=== PATIENT | male | born 1930 | race Caucasian/White ===

== ENCOUNTER → 2016-12-02 | Day surgery (SDC) | payer MEDICARE, BC ==
[~2016-12-02] MED LIST: ALLEGRA PO; AUGMENTIN PO; CALCIUM500 M1; CARBIDOPA-LEVO1 EAC5 PO; DIOVAN320 MG PO; DULOXETINE HCL60 MG PO; JARDIANCE10 MG PO; LO-DOSE ASPIRIN81 M1 PO; MULTI VITAMIN1 EACH PO; NAMENDA XR28 MG PO; NIFEDIPINE ER60 M2 PO; PRILOSEC PO; RIVASTIGMINE4.5 MG PO; VITAMIN C500 M6 PO; ZANTAC150 MG PO
--- NOTE | ~2016-12-02 | OR ---
Unit #: [id number] #: [id number] Patient: JOS[place]E [place] DR [id number] [address] [address] [id number] O MR#: [id number] NAME: JOSIANE BUTTS. ROOM: Date of Procedure: 12/02/2016 Admission Date: 12/02/2016 Surgeon: Gold Joshi M.D. : 1930 Attending Physician: Gold Joshi M.D. Primary Care Physician: Dwayne Brown M.D. OPERATIVE REPORT PROCEDURE PERFORMED Flexible fiberoptic bronchoscopy. INDICATIONS FOR PROCEDURE Hemoptysis, abnormal CAT scan. FINDINGS No endobronchial lesions seen. He had some nodular mucosa that appeared benign, particularly right lower lobe. He did have some mucus emanating from posterior segment right upper lobe. SEDATION MAC. CONDITION AFTER PROCEDURE Stable to recovery room. COMPLICATION Zero. DESCRIPTION OF PROCEDURE The patient was brought to the endoscopy suite and monitored for heart rate, blood pressure, saturations, and end-tidal CO2. Sedated with MAC. Anesthetized with 2% lidocaine in both nares. Viscous lidocaine was applied to his right naris. Bronchoscope was introduced without difficulty. Vocal cords were visualized. There were normal configuration, mostly anesthetized x2. Main trachea was intubated. Airways were anesthetized. All subsegments were identified. He had some mild nodularity that appeared to be benign, particularly right lower lobe. He had some mucus emanating from the posterior segment right upper lobe. This was removed. BAL was performed in the posterior segment right upper lobe in standard fashion. A 60 mL aliquots were instilled x2 with small, but cellular return. Some of the BAL fluid was recovered with bronchial washings. The bronchoscope was removed without difficulty, and the patient was in stable condition en route to the recovery room. Dictated by... Gold Joshi M.D. WOL/modl Unit #: [id number] #: [id number] Patient: JOSIANE BUTTS DR TD: 12/02/2016 14:52 JOB #: [id number] OPERATIVE REPORT Page 1 of 1 X Gold Joshi MD PROCEDURE OPERATIVE NOTE
[2016-12-02 14:00] LABS: BODY FLUID APPEARANCE CLOUDY; BODY FLUID SOURCE BRONCHIAL LAVAGE
== END | disposition home or self-care (01) ==
LOC: COPS 07:49
PROVIDERS: Internal Medicine
DX: R91.8 Other nonspecific abnormal finding of lung field (principal); I10 Essential (primary) hypertension; I25.10 Atherosclerotic heart disease of native coronary artery without angina pectoris; I25.2 Old myocardial infarction; E11.40 Type 2 diabetes mellitus with diabetic neuropathy, unspecified; G20 Parkinson's disease; K21.9 Gastro-esophageal reflux disease without esophagitis; M41.9 Scoliosis, unspecified; M81.0 Age-related osteoporosis without current pathological fracture; Z80.9 Family history of malignant neoplasm, unspecified; Z95.1 Presence of aortocoronary bypass graft; Z79.84 Long term (current) use of oral hypoglycemic drugs; Z98.890 Other specified postprocedural states; Z90.6 Acquired absence of other parts of urinary tract; Z79.2 Long term (current) use of antibiotics; Z79.82 Long term (current) use of aspirin
CPT/HCPCS: 82947; 87070; 87102; 87106; 87116; 87205; 87206; 88108; 88305; 89051; J0171